=== PATIENT | female | born 1945 | race Caucasian/White ===

== ENCOUNTER 2022-12-11 10:43 | Day surgery (SDC) | payer MEDICARE, MEDICAID ==
[~2022-12-11] VITALS: Ht 160 cm; Wt 119.1 kg
[2022-12-11] VITALS (8 sets, daily range): BP systolic 89–101; BP diastolic 47–54; PULSE 56–67; RESP 14–18; TEMP 98.1; O2SAT 95–99
[2022-12-11] MEDS ORDERED: normal saline 1000ml 1,000 ML IV PRN (11:30)
[2022-12-11] MEDS ORDERED: midazolam 1 mg/ML 2ml injection ONE (11:52)
[2022-12-11] MEDS ORDERED: heparin sodium, porcine/PF 100unit/ml 5ML syringe ONE (11:52)
[2022-12-11] MEDS ORDERED: fentaNYL/PF 50MCG/1 ML 2ML syringe ONE (11:52)
[2022-12-11] MEDS ORDERED: LIDOcaine 1% 30ml preserv. free vial ONE (11:53)
[2022-12-11] MEDS ORDERED: NA P230E PR (11:55)
[2022-12-11] MEDS ORDERED: TRAM50TA2 PO (11:55)
[2022-12-11] MEDS ORDERED: ONDA4TAB12 PO (11:55)
[2022-12-11] MEDS ORDERED: MULT-1085 PO (11:55)
[2022-12-11] MEDS ORDERED: FURO40TA4 PO (11:55)
[2022-12-11] MEDS ORDERED: [UNRECOGNIZED DRUG - CODE] TD (11:55)
[2022-12-11] MEDS ORDERED: RIVA20TA PO (11:55)
[2022-12-11] MEDS ORDERED: GLYC15DR4 EACHEYE (11:55)
[2022-12-11] MEDS ORDERED: ROBDML PO (11:55)
[2022-12-11] MEDS ORDERED: ALBU8HFA PO (11:55)
[2022-12-11] MEDS ORDERED: LIDO1ADH67 TD (11:55)
[2022-12-11] MEDS ORDERED: GABA600T13 PO (11:55)
[2022-12-11] MEDS ORDERED: CHOL500050 PO (11:55)
[2022-12-11] MEDS ORDERED: FLUT16SP2 BOTHNARES (11:55)
[2022-12-11] MEDS ORDERED: IRBE150T51 PO (11:55)
[2022-12-11] MEDS ORDERED: TRAZ150T78 PO (11:55)
[2022-12-11] MEDS ORDERED: POLY119P2 PO (11:55)
[2022-12-11] MEDS ORDERED: FLUT1AER INH (11:55)
[2022-12-11] MEDS ORDERED: DOCU-171 PO (11:55)
[2022-12-11] MEDS ORDERED: MAGN400O6 PO (11:55)
[2022-12-11] MEDS ORDERED: NYSPWD PO (11:55)
[2022-12-11] MEDS ORDERED: AZEL137S4 BOTHNARES (11:55)
[2022-12-11] MEDS ORDERED: ACET-1008 PO (11:55)
[2022-12-11 12:04] LABS: BASOPHILS % (AUTO) 0.8 % (0-1); EOSINOPHILS # (AUTO) 0.1 X10'3 (0-0.9); EOSINOPHILS % (AUTO) 1.3 % (0-6); HEMATOCRIT 43.8 % (35.0-45.0); LYMPHOCYTES # (AUTO) 1.4 X10'3 (1.1-4.8); LYMPHOCYTES % (AUTO) 24.6 % (21-51); MEAN CORPUSCULAR HEMOGLOBIN 28.5 PG (27.0-31.0); MEAN CORPUSCULAR HGB CONC 32.1 g/dL (33.0-36.5); MEAN CORPUSCULAR VOLUME 88.9 FL (78-98); MEAN PLATELET VOLUME 8.2 FL (7.4-10.4); MONOCYTES # (AUTO) 0.6 X10'3 (0-0.9); MONOCYTES % (AUTO) 9.8 % (2-12); NEUTROPHILS # (AUTO) 3.6 X10'3 (1.8-7.7); NEUTROPHILS % (AUTO) 63.5 % (42-75); PLATELET COUNT 193 X10'3 (140-440); RED BLOOD COUNT 4.93 X10'6 (4.20-5.60); RED CELL DISTRIBUTION WIDTH 15.7 % (11.5-14.5); WHITE BLOOD COUNT 5.7 X10'3 (4.5-11.0)
[2022-12-11 12:12] LABS: ALBUMIN 3.5 G/DL (3.4-5.0); ANION GAP 2 (8-16); BLOOD UREA NITROGEN 10 MG/DL (7-18); BUN/CREATININE RATIO 20.4 (10.0-20.0); CALCIUM 9.3 MG/DL (8.5-10.1); CHLORIDE 101 MMOL/L (99-107); CREATININE 0.49 MG/DL (0.40-0.90); GLUCOSE 97 MG/DL (70-104); POTASSIUM 3.9 MMOL/L (3.5-5.1); SODIUM 140 MMOL/L (135-145); TOTAL CARBON DIOXIDE 36.8 MMOL/L (24-32); eCRCL 81 ML/MIN; eGFR > 90 ML/MIN
== END 2022-12-11 15:10 ==
LOC: SSTAY O 10:43
PROVIDERS: ATTEND Radiology Vascular & Interventional Radiology
DX: C44.319 Basal cell carcinoma of skin of other parts of face (principal); E66.9 Obesity, unspecified; Z68.41 Body mass index [BMI] 40.0-44.9, adult; M19.90 Unspecified osteoarthritis, unspecified site; I25.10 Atherosclerotic heart disease of native coronary artery without angina pectoris; I11.0 Hypertensive heart disease with heart failure; I50.9 Heart failure, unspecified; J44.9 Chronic obstructive pulmonary disease, unspecified; Z79.899 Other long term (current) drug therapy; Z80.3 Family history of malignant neoplasm of breast
CPT/HCPCS: 36415; 36561; 76937; 77001; 80048; 85025; 99152; 99153; C1788; J1642; J2250; J3010; J3490; J7030; C1894